=== PATIENT | female | born 1940 | race African-American/Black ===

== ENCOUNTER 2018-02-19 08:01 | Observation (INO) | payer MEDICARE ==
--- NOTE | 2018-02-19 09:04 | CT ---
BRAIN CT WITHOUT IV CONTRAST: Date: 02/19/18 HISTORY: 77-year-old female with history of left-sided weakness, hypertension. Dizziness. Frontal headache. FINDINGS: Mild atrophy. No focal mass or midline shift. No intra or extra-axial hemorrhage. Sinuses and mastoid s are clear. IMPRESSION: Atrophy and chronic white matter ischemic change. No mass, bleed, or other acute process. POS: C
[2018-02-19 09:10] LABS: #Eosinphils 0.1 thou/uL (0.0-0.7); #Lymphocytes 1.2 thou/uL (1.20-3.40); #Monocytes 0.6 thou/uL (0.11-0.59); #Neutrophils 2.9 thou/uL (1.40-6.50); %Basophils 0.7 % (0.0-1.0); %Eosinophils 2.1 % (0.0-10.0); %Lymphocytes 24.5 % (21.0-51.0); %Monocytes 11.6 % (0.0-10.0); Hemoglobin 12.4 g/dL (12.0-16.0); Mean Corpuscular HGB CONC 30.8 g/dL (32.0-36.0); Mean Corpuscular Hemoglobin 27.1 pg (27.0-31.0); Mean Corpuscular Volume 88.1 fL (78.0-98.0); Mean Platelet Volume 7.8 fL (7.4-10.4); Platelet Count 216 thou/uL (130-400); RBC Distribution Width 14.5 % (11.5-14.5); Red Blood Cell (RBC) Count 4.57 mill/uL (4.20-5.40); White Blood Cell (WBC) Count 4.8 thou/uL (4.8-10.8)
[2018-02-19] MEDS ORDERED: hydrALAZINE 20 MG/ML VIAL SLOW IVP SCH (09:15)
[2018-02-19 09:37] LABS: CKMB 0.9 ng/mL (0-6.6); Troponin I Less than 0.010 ng/mL (< 0.028)
[2018-02-19 09:38] LABS: ALT (SGPT) Less than 7 U/L (8-55); AST (SGOT) 14 U/L (5-34); Albumin 4.2 g/dL (3.4-4.8); Alkaline Phosphatase 90 U/L (40-150); Anion Gap 14 mmol/L (10-20); BUN (Urea Nitrogen) 14 mg/dL (9.8-20.1); Bilirubin, Total 0.6 mg/dL (0.2-1.2); CK (CPK) 58 U/L (29-168); Calc. Creatinine Clearance 0 mL/min (70-130); Calcium 9.4 mg/dL (7.8-10.44); Carbon Dioxide 25 mmol/L (23-31); Chloride 107 mmol/L (98-107); Estimated GFR-MDRD 70; Globulin 3.1 g/dL (2.4-3.5); Glucose 111 mg/dL (83-110); Potassium 4.7 mmol/L (3.5-5.1); Protein, Total 7.3 g/dL (6.0-8.3); Sodium 141 mmol/L (136-145)
[2018-02-19] MEDS ORDERED: Famotidine 20 MG TAB ONE (09:47)
[2018-02-19 11:04] LABS: Bilirubin Negative (Negative); Blood, Urine Negative (Negative); Glucose, Urine (Dipstick) Negative (Negative); Leukocyte Negative (Negative); Nitrite Negative (Negative); Protein, Urine (Dipstick) Negative (Neg-Trace); Urobilinogen 0.2 mg/dL (0.2-1.0); pH, Urine 7.5 (5.0-9.0)
[2018-02-19 11:06] LABS: Clarity Clear (Clear); Specific Gravity, Urine 1.006 (1.002-1.036)
[2018-02-19 12:43] LABS: Troponin I 0.021 ng/mL (< 0.028)
[2018-02-19] MEDS ORDERED: Acetaminophen 325 MG TAB PO PRN (13:55)
[2018-02-19] MEDS ORDERED: hydrALAZINE 20 MG/ML VIAL SLOW IVP PRN (15:04)
[2018-02-19] MEDS ORDERED: Calcium Carbonate 500 MG ChewTAB PO PRN (15:41)
[2018-02-19] MEDS ORDERED: Nitroglycerin 0.4 MG TAB (25 Tab Bottle) PO PRN (15:41)
[2018-02-19] MEDS ORDERED: Mag-Al 1200 mg/1200 mg/30 ML UDCUP PO PRN (15:41)
[2018-02-19] MEDS ORDERED: Senokot 8.6 MG TAB PO PRN (15:41)
[2018-02-19] MEDS ORDERED: Ondansetron HCl/PF 4 MG/2 ML Vial IVP PRN (15:41)
[2018-02-19] MEDS ORDERED: Ondansetron ODT 4 MG TAB PO PRN (15:41)
--- NOTE | 2018-02-19 15:52 | HP ---
DATE OF ADMISSION: 02/19/2018 PRIMARY CARE PHYSICIAN: Dr. Mark Duval in [place]. PRIMARY BASKET GRADER: Dr. Katia Pollard at [place]. CHIEF COMPLAINT: Stroke-like symptoms. HISTORY OF PRESENT ILLNESS: The patient is a 77-year-old female with hypertension and recent catarac t surgery, presented to the emergency room with above complaints. Approximately 6 weeks ago, patient had a chemical stress test that was negative per patient report. She had cataract surgery which was uneventful. She has been doing well postoperatively. She monitor s her blood pressures on a daily basis and did not have any issues. Her blood pressure usually tends to run low per patient report. This morning, the patient woke up and felt fine. Approximately 1 hour later, she started feeling diz zy along with frontal headache and bilateral upper and lower extremity weakness and numbness. Her sp eech was also slurry. There was some blurriness of vision as well. She denies any syncope. No naus ea, vomiting, chest pain, or palpitations reported. Her family checked her blood pressure that was m ore than 200 systolic and 100 diastolic. She is currently visiting her family in [place]. She was bro ught into the emergency room. In the emergency room, her initial vital signs showed temperature 98, respiration 19, pulse rate of 7 3, blood pressure of 204/110 with O2 saturation 100% on room air. Her EKG showed sinus rhythm with f irst degree AV block and left axis deviation. She received 10 mg of IV hydralazine, 20 mg Pepcid and 162 mg of aspirin. Her initial NIH in the emergency room was 3; however, after improvement in the b lood pressure, NIH was 0. Her blood pressure in the emergency room after hydralazine was 143/84. After arrival to the floor, patient started developing nausea. Telemetry monitoring showed second de gree AV block. It was initially type 1. However, later on it was type 2. Patient is asymptomatic a t this time. PAST MEDICAL HISTORY: 1. Hypertension. 2. Recent negative stress test. 3. Recent cataract surgery. 4. Hypothyroidism. 5. Obstructive sleep apnea. 6. Chronic first degree AV block. 7. Glaucoma. 8. Macular degeneration. 9. Gastroesophageal reflux disease. 10. Degenerative joint disease. PAST SURGICAL HISTORY: 1. Cholecystectomy in 2011 which was complicated with pneumothorax. 2. Appendectomy. 3. Hysterectomy with bilateral salpingo-oophorectomy. 4. Gastric bypass approximately 20 years ago. 5. Multiple eye surgeries for macular degeneration. 6. Recent cataract surgery. ALLERGIES: Patient is allergic to ASPIRIN that causes GI upset. CURRENT HOME MEDICATIONS: Losartan 25 mg daily, Synthroid 112 mcg daily, timolol dorzolamide eyedrop s twice a day, brimonidine 1 drop twice a day, methazolamide 25 mg twice a day. SOCIAL HISTORY: Patient currently lives at home in [place]. She is visiting her family in [facility] he is . 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 No tobacco, alcohol or drug use. She is FULL CODE and makes her own decision with the help of her family. FAMILY HISTORY: Father with CVA and hypertension. Mother with hypertension. REVIEW OF SYSTEMS: The following complete review of systems was negative, unless otherwise mentioned in the HPI or below: Constitutional: Weight loss or gain, ability to conduct usual activities. Skin: Rash, itching. Eyes: Double vision, pain. ENT/Mouth: Nose bleeding, neck stiffness, pain, tenderness. Cardiovascular: Palpitations, dyspnea on exertion, orthopnea. Respiratory: Shortness of breath, wheezing, cough, hemoptysis, fever or night sweats. Gastrointestinal: Poor appetite, abdominal pain, heartburn, nausea, vomiting, constipation, or diarr hea. Genitourinary: Urgency, frequency, dysuria, nocturia. Musculoskeletal: Pain, swelling. Neurologic/Psychiatric: Anxiety, depression. Allergy/Immunologic: Skin rash, bleeding tendency. PHYSICAL EXAMINATION: VITAL SIGNS: As discussed above. GENERAL: A 77-year-old female in no apparent distress. She continues to have headache after nitropa tch. HEENT: Head is atraumatic, normocephalic. Sclerae are anicteric. Moist mucous membrane, no oral le tino. NECK: Supple, no JVD appreciated. No carotid bruit. LUNGS: Clear to auscultation bilaterally. HEART: S1 and S2 present. Regular rate and rhythm. ABDOMEN: Soft, nontender, bowel sounds present. EXTREMITIES: No calf tenderness. There was 1+ edema in bilateral lower extremities. SKIN: Warm and dry. LYMPH NODES: No palpable lymph nodes in the neck. PERIPHERAL VASCULAR: Radial pulses palpable bilaterally. MUSCULOSKELETAL: No joint swelling or tenderness. NEUROLOGIC: Cranial nerves II-XII were normal on examination. Power was 5/5 in all extremities. Fi akzo-ss-rsea test was normal. Reflexes were equivocal. PSYCHIATRIC: Alert, awake, oriented x3. SKIN: Warm and dry. LYMPH NODES: No palpable lymph nodes in the neck. PERIPHERAL VASCULAR: Radial pulses palpable bilaterally. LABORATORY DATA AND IMAGING DATA: 1. CBC showed WBC 4.8, hemoglobin 12.4, hematocrit 40.3, platelet count 216. Chemistries showed sod ium 141, potassium 4.7, chloride 107, bicarbonate 25, BUN 14, creatinine 0.94. LFTs in normal range. Troponin was negative. Urinalysis was negative for WBC or bacteria. 2. CT scan of the brain by my review was negative. It showed chronic white matter ischemic changes. 3. EKG by my review showed sinus rhythm with first degree AV block and left axis deviation. IMPRESSION: 1. Transient ischemic attack. 2. Hypertensive urgency. 3. Chronic kidney disease stage 2. 4. Glaucoma, currently on beta madelin, eyedrops. 5. Second degree AV block, asymptomatic. 6. Hypothyroidism. 7. Obstructive sleep apnea. 8. Hyperlipidemia. 9. Macular degeneration. PLAN: The patient will be monitored in the Stroke Unit. She is allergic to ASPIRIN. She received 1 62 mg aspirin in the emergency room after which she has developed some nausea. 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 We will consult Cardiology and Neurology. Further antiplat elet agent per Neurology. We will monitor troponins. We will keep her n.p.o. due to second degree A V block. We will continue losartan. We will resume selected home medications. We will discuss with Cardiology if it is okay to resume beta madelin eyedrops in the setting of high degree AV block. We will try to obtain echocardiogram report from primary paper machine backtender's office which was just done 6 we eks ago. Plan of care was discussed with the patient in detail and she stated understanding.
[2018-02-19 16:26] VITALS: BMI 29.8
--- NOTE | 2018-02-19 20:12 | CON ---
DATE OF CONSULT: 02/19/18 HISTORY OF PRESENT ILLNESS: The patient is a 77-year-old woman with a history of hypertension who presented with dizziness, lightheadedness, and weakness. The patient has a long history of hypertension. She has taken valsartan for many years. The patient recently was switched to losartan. She was visiting in [facility] and had been noncompliant with her low sodium diet. The patient started getting headaches, weakness, and fatigue. She became dizzy and presented for further evaluation. The patient denied having any chest discomfort. The patient has no history of syncope. PAST MEDICAL HISTORY: 1. Hypertension. 2. Hypothyroidism. 3. Glaucoma. PAST SURGICAL HISTORY: Cholecystectomy, hysterectomy, gastric bypass. SOCIAL HISTORY: Nonsmoker. MEDICATIONS: Losartan 25 daily, Metholamide 25 mg 2 tablets daily and Synthroid 125 mcg daily. FAMILY HISTORY: Positive family history of coronary artery disease. ALLERGIES: STATINS and Norvasc. ASPIRIN causes indigestion. REVIEW OF SYSTEMS: Ten-point system otherwise unremarkable. No history of easy bruising or bleeding, bright red blood per rectum, hematuria. PHYSICAL EXAMINATION: GENERAL: This is an elderly woman in no acute distress with a blood pressure of 188/90. NECK: No jugular distention, no carotid bruits. LUNGS: Clear to auscultation. HEART: Regular rate and rhythm, normal S1, S2, no murmurs. ABDOMEN: Nondistended. EXTREMITIES: Showed no edema. SKIN: Warm and dry. NEUROLOGIC: Nonfocal. LABORATORY DATA: Sodium 141, potassium 4.7, chloride 110, bicarbonate 25, BUN 14, creatinine is 0.94, glucose 111, troponin less than 0.01. White blood cell count is 4.8, hemoglobin 12.4, hematocrit 40.3 and her platelets are 216. Her EKG reveals her to have sinus bradycardia with first degree AV block. laboratory monitor revealed second degree AV block, Mobitz type 1 IMPRESSION 1. Hypertensive crisis. 2. AV block, Mobitz type 1. 3. Hypothyroidism. 4. Glaucoma. This patient presents with a hypertensive crisis.Her initial blood pressures were well over 200. She had been noncompliant with her low sodium diet has recently been switched to losartan. From a cardiac standpoint, I would increase the dose of her losartan. It is imperative this patient be more compliant with her low sodium diet. The patient has a second degree Mobitz type 1, but is asymptomatic. We will follow this patient with you through her hospitalization. DOLORES
[2018-02-19] MEDS ORDERED: METHAZOLAMIDE PO SCH (21:00)
[2018-02-19] MEDS ORDERED: Atorvastatin Calcium 10 MG TAB PO SCH (21:00)
[2018-02-19] MEDS: Losartan 25 MG TAB PO SCH (21:24)
[2018-02-19] MEDS: Heparin 5,000 UNITS/ML VIAL SC SCH (21:24)
[2018-02-19] MEDS: Famotidine 20 MG TAB PO SCH (21:24)
[2018-02-19] MEDS: Brimonidine Tartrate 0.2% Ophth Soln 5 ml Bottle EA EYE SCH (21:25)
[2018-02-19] MEDS: Docusate 100 MG CAP PO SCH (21:26)
--- NOTE | 2018-02-19 22:11 | CON ---
DATE OF CONSULTATION: 02/19/2018 CONSULTING PHYSICIAN: Hospitalist Service. IMPRESSION: 1. Probable hypertensive urgency. 2. Hypertension. PLAN: 1. MRI of the brain. 2. Carotid Doppler. 3. Echocardiogram. 4. Blood pressure control. HISTORY OF PRESENT ILLNESS: Ms. Bucio is a 77-year-old black female, who reports she was feeling fine when she first got up. She was sitting watching TV when she started to feel a dizzy sensation. She got up out of the chair and was trying to walk to the bedroom and felt weak in a diffuse manner. Brandon matthew sat herself down and call for some help. They brought in a blood pressure cuff and checked her pre ssure. Her diastolics were around 110. They checked it several times and it remained high. I marin d for EMS assistance and she was brought to the hospital. She started noticing a pressure-type heada alecia as well as some blurred vision and difficulty concentrating. After her blood pressure settled do wn, her symptoms have improved significantly. She denies any residual focal deficits. PAST MEDICAL HISTORY: Hypertension. ALLERGIES: None reported. SOCIAL HISTORY: No tobacco or alcohol use. FAMILY HISTORY: Noncontributory. REVIEW OF SYSTEMS: No complaint of chest pain, shortness of breath, vision loss, or loss of consciou sness. PHYSICAL EXAMINATION: GENERAL: She is a well-nourished elderly lady in no distress. VITAL SIGNS: Stable with mild hypertension noted. HEENT: Pupils equal and reactive. Conjunctivae clear. Oropharynx clear. NECK: Supple. No lymphadenopathy. EXTREMITIES: There were some peripheral edema in both legs. NEUROLOGIC: She is alert and appropriate. Her speech is fluent and clear. Exam is nonfocal. No ab normal movements were seen. Gait was not tested. EKG shows normal sinus rhythm. CT scan of the brain without contrast was reviewed and appears unremarkable. SUMMARY: Given the constellation of symptoms, I suspect this was a hypertensive urgency. Completed stroke workup, as discussed above.
[2018-02-20] MEDS ORDERED: Levothyroxine Sodium 112 MCG TAB PO SCH (06:00)
[2018-02-20 08:05] VITALS: TEMP 97.7
[2018-02-20] MEDS ORDERED: LOSARTAN POTASSIUM 25 MG PO SCH (09:00)
[2018-02-20] MEDS: Famotidine 20 MG TAB PO SCH (09:33)
[2018-02-20] MEDS: Docusate 100 MG CAP PO SCH (09:35)
[2018-02-20] MEDS: Losartan 25 MG TAB PO SCH (09:35)
[2018-02-20] MEDS: Heparin 5,000 UNITS/ML VIAL SC SCH (09:36)
--- NOTE | 2018-02-20 11:09 | MRI ---
MRI BRAIN WITHOUT CONTRAST: Date: 02/20/18 HISTORY: TIA. Dizziness. Left-sided weakness. FINDINGS: Correlation is made with the previous day's CT scan. No restricted diffusion is seen. There are changes of cortical atrophy and chronic small vessel ische keiko disease. No evidence of infarct, hemorrhage, midline shift, or abnormal extra-axial fluid collect ions are seen. The ventricular size is appropriate and the basilar cisterns are patent. There is muco terese disease in the floor of the left maxillary sinus. IMPRESSION: No evidence of acute intracranial process. POS: SWETA
--- NOTE | 2018-02-20 11:55 | PDOC.PN ---
- Subjective Encounter Start Date: 02/20/18 Encounter Start Time: 11:53 Subjective: feels well. -: denies any chest pain/discomfort - Objective Resuscitation Status: Resuscitation Status FULL:Full Resuscitation MAR Reviewed: Yes Vital Signs & Weight: Vital Signs (12 hours) Temp Pulse Resp BP Pulse Ox 02/20/18 11:47 97.7 F 75 16 160/77 H 99 02/20/18 08:00 97.7 F 66 18 142/68 H 95 02/20/18 04:00 98.7 F 65 18 142/66 H 98 02/20/18 02:26 95 02/20/18 00:00 98.3 F 66 18 109/57 L 97 Weight Admit Weight 174 lb Weight 174 lb I&O: 02/19/18 02/20/18 02/21/18 06:59 06:59 06:59 Intake Total 491 Balance 491 Result Diagrams: 02/19/18 08:59 02/19/18 08:59 Additional Labs: Accuchecks 02/20/18 02/19/18 06:02 16:53 POC Glucose 115 H 108 Laboratory Tests 02/19/18 02/19/18 02/19/18 08:59 12:08 15:02 Magnesium Troponin I Less than 0.010 0.021 0.020 Triglycerides Cholesterol LDL Cholesterol, Calc HDL Cholesterol TSH 3rd Generation 02/19/18 02/19/18 02/20/18 15:02 15:02 05:43 Magnesium 2.5 Troponin I Triglycerides 111 Cholesterol 253 H LDL Cholesterol, Calc 180 HDL Cholesterol 51 TSH 3rd Generation 5.0104 H Phys Exam - Physical Examination Constitutional: NAD HEENT: PERRLA, moist MMs, sclera anicteric, oral pharynx no lesions Neck: no nodes, no JVD, supple, full ROM Respiratory: no wheezing, no rales, no rhonchi, clear to auscultation bilateral Cardiovascular: RRR, no significant murmur Gastrointestinal: soft, non-tender, no distention, positive bowel sounds Musculoskeletal: no edema, pulses present Neurological: non-focal, normal sensation, moves all 4 limbs Psychiatric: normal affect, A&O x 3 Skin: no rash, normal turgor, cap refill <2 seconds Dx/Plan (1) Hypertensive urgency Code(s): I16.0 - HYPERTENSIVE URGENCY Status: Acute Comment: Improved with increased dose of Losartan (2) TIA (transient ischemic attack) Code(s): G45.9 - TRANSIENT CEREBRAL ISCHEMIC ATTACK, UNSPECIFIED Status: Suspected (3) Sinus bradycardia Code(s): R00.1 - BRADYCARDIA, UNSPECIFIED Status: Acute Comment: AB block (4) CKD (chronic kidney disease) stage 2, GFR 60-89 ml/min Code(s): N18.2 - CHRONIC KIDNEY DISEASE, STAGE 2 (MILD) Status: Acute (5) HLD (hyperlipidemia) Code(s): E78.5 - HYPERLIPIDEMIA, UNSPECIFIED Status: Chronic - Plan out of bed/ambulate, DVT proph w/SCDs HR drops in 30s when asleep w some symptoms.nemesio will need PPM -: will get ECHO,MRI,carotid to r/o CVA.cont ASA. -: cont high dose Losartan . monitor BP. -: Will get records from compliance examiner in [place] -: TSH slightly low. F/W w PCP. cont levothyroxine * . Review of Systems - Review of Systems Constitutional: negative: fever, chills, sweats, weakness, malaise, other ENT: negative: Ear Pain, Ear Discharge, Nose Pain, Nose Discharge, Nose Congestion, Mouth Pain, Mouth Swelling, Throat Pain, Throat Swelling, Other Respiratory: negative: Cough, Dry, Shortness of Breath, Hemoptysis, SOB with Excertion, Pleuritic Pain, Sputum, Wheezing Cardiovascular: negative: chest pain, palpitations, orthopnea, paroxysmal nocturnal dyspnea, edema, light headedness, other Gastrointestinal: negative: Nausea, Vomiting, Abdominal Pain, Diarrhea, Constipation, Melena, Hematochezia, Other Genitourinary: negative: Dysuria, Frequency, Incontinence, Hematuria, Retention , Other Musculoskeletal: negative: Neck Pain, Shoulder Pain, Arm Pain, Back Pain, Hand Pain, Leg Pain, Foot Pain, Other Neurological: negative: Weakness, Numbness, Incoordination, Change in Speech, Confusion, Seizures, Other - Medications/Allergies Allergies/Adverse Reactions: Allergies Allergy/AdvReac Type Severity Reaction Status Date / Time amlodipine [From [facility]] Allergy Verified 02/19/18 18:43 aspirin Allergy Verified 05/19/13 13:49 lisinopril Allergy Verified 02/19/18 18:43 monosodium glutamate Allergy Verified 02/19/18 18:43 propofol Allergy Verified 02/19/18 18:43 Accsbda-Seq-Baj Reductase Allergy Verified 02/19/18 19:31 Inhibitor Medications: Current Medications Acetaminophen (Tylenol) 650 mg PO Q4H PRN PRN Reason: Headache/Fever or Mild Pain Last Admin: 02/19/18 15:13 Dose: 650 mg Al Hydroxide/Mg Hydroxide (Maalox) 30 ml PO Q6H PRN PRN Reason: Heartburn or Indigestion Atorvastatin Calcium (Lipitor) 10 mg PO HS [facility] Last Admin: 02/20/18 00:34 Dose: Not Given Brimonidine Tartrate (Alphagan 0.2% Oph Soln) 1 drop EA EYE BID [facility] Last Admin: 02/19/18 21:25 Dose: 1 drop Calcium Carbonate (Tums) 1,000 mg PO Q4H PRN PRN Reason: Heartburn or Indigestion Docusate Sodium (Colace) 100 mg PO BID [facility] Last Admin: 02/20/18 09:35 Dose: 100 mg Famotidine (Pepcid) 20 mg PO BID [facility] Last Admin: 02/20/18 09:33 Dose: 20 mg Heparin Sodium (Porcine) (Heparin) 5,000 units SC BID [facility] Last Admin: 02/20/18 09:36 Dose: 5,000 units Hydralazine HCl (Apresoline) 5 mg SLOW IVP Q4H PRN PRN Reason: SBP Greater Than 180 Last Admin: 02/19/18 15:44 Dose: 5 mg Levothyroxine Sodium (Synthroid) 112 mcg PO 0600 [facility] Last Admin: 02/20/18 05:37 Dose: 112 mcg Losartan Potassium (Cozaar) 50 mg PO BID [facility] Last Admin: 02/20/18 09:35 Dose: 50 mg Nitroglycerin (Nitrostat) 0.4 mg PO Q5MIN PRN PRN Reason: Chest Pain Ondansetron HCl (Zofran Odt) 4 mg PO Q6H PRN PRN Reason: Nausea/Vomiting Ondansetron HCl (Zofran) 4 mg IVP Q6H PRN PRN Reason: Nausea/Vomiting Methazolamide [ (Methazolamide] 1 Tab) 1 each PO BID [facility] Senna (Senokot) 2 tab PO HSPRN PRN PRN Reason: Constipation Sodium Chloride (Flush - Normal Saline) 10 ml IVF PRN PRN PRN Reason: Saline Flush
[2018-02-20 12:21] VITALS: BP 165/78
[2018-02-20] MEDS: Brimonidine Tartrate 0.2% Ophth Soln 5 ml Bottle EA EYE SCH (12:41)
--- NOTE | 2018-02-20 14:06 | ULT ---
BILATERAL CAROTID DUPLEX ULTRASOUND: HISTORY: TIA. TECHNIQUE: Badillo-scale ultrasound with color-flow and spectral Doppler imaging of the extracranial carotid artery systems was performed bilaterally. FINDINGS: There is plaque formation, predominantly on the right. The peak systolic velocity in the right ICA measures 102 cm per second, with an end-diastolic velocit y of 38 cm per second and a systolic ratio of 1.3. The peak systolic velocity in the left ICA measures 80 cm per second, with an end-diastolic velocity of 30 cm per second and a systolic ratio of 0.7. Flow in both vertebral arteries remains antegrade. IMPRESSION: No evidence of hemodynamically significant stenosis. POS: SWETA
--- NOTE | 2018-02-20 16:50 | EKG ---
Test Reason : ER INDICATION Blood Pressure : / mmHG Vent. Rate : 061 BPM Atrial Rate : 061 BPM P-R Int : 294 ms QRS Dur : 094 ms QT Int : 458 ms P-R-T Axes : 059 -40 079 degrees QTc Int : 461 ms Sinus rhythm with 1st degree A-V block Left axis deviation Nonspecific T wave abnormality Abnormal ECG Confirmed by ALCIDES SHIPLEY, DR. Marks ([id number]) on 02/20/2018 4:49:56 PM Referred By: ADRY Confirmed By:DR. Kendrick MCGRATH MD
--- NOTE | 2018-02-20 22:44 | DIS ---
DATE OF ADMISSION: 02/19/2018 DATE OF DISCHARGE: 02/20/2018 CONDITION AT THE TIME OF DISCHARGE: Stable and improved. DISCHARGE DIAGNOSES: 1. Hypertensive urgency. 2. Transient ischemic attack, ruled out. 3. Sinus bradycardia, type 2 atrioventricular block. 4. Chronic kidney disease stage 2. 5. Dyslipidemia. PRIMARY CARE PHYSICIAN: Out of town in [place], Dr. Mark Duval. INHOUSE CONSULTATIONS: Cardiology, Dr. Mike Taylor and Neurology, Dr. Giovanni Gan. PROCEDURES DONE IN THE HOSPITAL: 1. CT scan of the brain upon presentation, which shows atrophy and chronic white matter ischemic jose armando nges without any acute changes. 2. MRI of the brain which is negative for any acute cerebrovascular accident. 3. Carotid Doppler ultrasound, which is negative for any hemodynamically significant stenosis. DISCHARGE MEDICATIONS: New medications, Losartan dose has been increased from 25 mg daily to 50 mg p .o. b.i.d. She can resume methazolamide 1 tablet p.o. b.i.d., Synthroid 1 tablet p.o. daily, timolol eye drops and Alphagan eyedrops. DISCHARGE FOLLOWUP: Primary care physician in 1 week, primary shoe repairer in 1 week. HISTORY OF PRESENTING ILLNESS: Ms. Bucio is a very pleasant 77-year-old female with history of hypert ension who had an extensive cardiac workup done 6 weeks ago in [place] including a stress test and ca rdiac echo which was all normal, presented to the emergency room with stroke-like symptoms. She had dizziness, headache and bilateral upper and lower extremity weakness and numbness as well as some slu rred speech and blurred vision. She had sudden onset of hypertensive episode, checked multiple times at home with systolic in the 200s and 100s in the diastolic. EKG on presentation showed second degr ee AV block initially type 1 then later on type 2 with left axis deviation. Her head CT done at the time of admission was unremarkable. She was admitted for further workup and rule out transient ische keiko attack. HOSPITAL COURSE: Cardiology was consulted with regards to her AV block. The patient's heart rate dr opped down to 30s when she was asleep, but she was rather asymptomatic. Dr. Taylor saw the patient and increased her losartan to better control the blood pressure, but otherwise the recommendation wa s to follow up with her own shoe repairer in [place] area as her extensive recent workup was negative. She was also seen by neurologist, Dr. Gan. MRI of the brain and carotid Doppler ultrasound were done which were unremarkable. Echocardiogram was not repeated as the patient wanted to rather follow up with her own physician in [facility] as she was asymptomatic and all of this cardiac workup was negative 6 weeks ago. She remained hemodynamically stable throughout the rest of her hospitalization with highest blood pre ssure being 178/81 which was 160/77 at the time of discharge. She was seen and examined prior to discharge. Please see hospitalist progress note for further detai l and [id number] interaction. New medication prescription was provided.
== END 2018-02-20 14:19 | disposition home or self-care (01) ==
LOC: ERS 08:01 → 2SE 12:14
PROVIDERS: ADMIT Internal Medicine; ATTEND Internal Medicine
DX: I16.0 Hypertensive urgency (principal); I16.9 Hypertensive crisis, unspecified; I12.9 Hypertensive chronic kidney disease with stage 1 through stage 4 chronic kidney disease, or unspecified chronic kidney disease; N18.2 Chronic kidney disease, stage 2 (mild); E78.5 Hyperlipidemia, unspecified; E03.9 Hypothyroidism, unspecified; G47.33 Obstructive sleep apnea (adult) (pediatric); I44.0 Atrioventricular block, first degree; K21.9 Gastro-esophageal reflux disease without esophagitis; M19.90 Unspecified osteoarthritis, unspecified site; R42 Dizziness and giddiness; R51 Headache; R29.91 Unspecified symptoms and signs involving the musculoskeletal system; R20.2 Paresthesia of skin; R47.81 Slurred speech; H40.9 Unspecified glaucoma; I44.1 Atrioventricular block, second degree; Z79.899 Other long term (current) drug therapy; Z88.8 Allergy status to other drugs, medicaments and biological substances; Z98.84 Bariatric surgery status; Z91.19 Patient's noncompliance with other medical treatment and regimen
CPT/HCPCS: 70450; 70551; 80061; 81003; 82550; 82553; 82962 ×2; 83735; 84484 ×2; 93005; 93306; 93880; 94760 ×2; 96374; 96376; 99285; G0378 ×2; G8978; G8979; 36415; 36416; 80053; 84443; 85025; J0360; J1644